=== PATIENT | female | born 1975 | race Two or more races ===

== ENCOUNTER 2024-06-12 22:46 | Emergency (ER) | payer SELFPAY ==
[~2024-06-12] VITALS: Ht 160 cm; Wt 60.0 kg
[2024-06-12 23:23] LABS: Urine Bacteria None Seen /hpf (None Seen)
[2024-06-12 23:49] LABS: Urine Blood Negative /uL (Negative); Urine Clarity Clear (Clear); Urine Color Light-Yellow (Yellow); Urine Mucus FEW (None Seen); Urine Protein, UAD TRACE (Negative); Urine Specific Gravity 1.044 (1.001-1.035); Urine Urobilinogen 2 mg/dL (Negative); Urine WBC 3 /hpf (0 - 5); Urine pH 6.5 (5.0-9.0)
[2024-06-13 00:53] LABS: Basophils # (auto) 0 10 ^3/uL (0-0.2); Basophils % (auto) 0.6 % (0.0-2.0); Eosinophils # (auto) 0.2 10 ^3/uL (0-0.8); Hematocrit 43.5 % (36.0-46.0); Hemoglobin 14.8 g/dL (12.2-16.2); Lymphocytes # (auto) 3.4 10 ^3/uL (0.4-5.4); Mean Corpuscular Hemoglobin 30.1 pg (28.0-32.0); Mean Corpuscular Volume 88.5 fL (80.0-100.0); Monocytes # (auto) 0.5 10 ^3/uL (0-1.3); Monocytes % (auto) 6.2 % (0.0-12.0); Neutrophils # (auto) 3.4 10 ^3/uL (1.6-8.6); Neutrophils % (auto) 45.2 % (37.0-80.0); Nucleated Red Blood Cells % 0.1 %; Red Blood Cells 4.92 10^6/uL (4.0-5.20); Red Cell Distribution Width 12.8 % (11.8-14.3); White Blood Cell 7.5 10^3/uL (4.4-10.8)
[2024-06-13 01:07] LABS: Alanine Aminotransferase 49 U/L (7-40); Albumin 4.2 g/dL (3.2-4.8); Alkaline Phosphatase 177 U/L (46-116); Anion Gap 7 (5-15); Aspartate Aminotransferase 30 U/L (13-40); Bilirubin, Total 0.3 mg/dL (0.2-1.0); Blood Urea Nitrogen 16 mg/dL (9-23); Calcium 9.4 mg/dL (8.7-10.4); Carbon Dioxide 27 mmol/L (20-30); Chloride 102 mmol/L (98-107); Glucose 283 mg/dL (74-106); Potassium 3.7 mmol/L (3.5-5.1); Sodium 136 mmol/L (136-145)
[2024-06-13 01:08] LABS: Total Protein 7.5 g/dL (5.7-8.2)
[2024-06-13 04:13] VITALS: BP 117/76; PULSE 64; RESP 16; O2SAT 100
== END 2024-06-13 04:14 | disposition left against medical advice (07) ==
LOC: ER 22:46
DX: E11.65 Type 2 diabetes mellitus with hyperglycemia (principal); M79.662 Pain in left lower leg
CPT/HCPCS: 36415; 71045; 80053; 81001; 82010; 82962; 85025